=== PATIENT | male | born 1985 | race Caucasian/White ===

== ENCOUNTER 2019-07-04 23:24 | Emergency (ER) | payer OTHER, BC ==
[~2019-07-04] VITALS: Ht 172.7 cm; Wt 70.3 kg
--- NOTE | 2019-07-05 00:05 | NUR ---
PT BIBF. C/O "LAST DRINK TUESDAY. DRANK X5 YEARS HEAVY." +DIZZY. +SHAKY. PALCED ON MONTOR AND PULSE OX. VSS.
[2019-07-05] MEDS ORDERED: LORAZEPAM INJ 2 MG/ML VIAL ONE ×2 (00:09→00:39)
[2019-07-05] MEDS ORDERED: LORAZEPAM INJ 2 MG/ML VIAL IM ONE ×2 (00:30→01:00)
--- NOTE | 2019-07-05 01:03 | NUR ---
Patient discharged to home in stable condition. Written and verbal after care instructions given. Patient verbalizes understanding of instruction and RX. PT was told about AA programs. Pt ambulated with steady gait.
[2019-07-05 01:04] VITALS: BP 122/78
== END 2019-07-05 01:05 | disposition home or self-care (01) ==
LOC: ER 23:24
DX: F10.239 Alcohol dependence with withdrawal, unspecified (principal); Y90.9 Presence of alcohol in blood, level not specified
CPT/HCPCS: 96372 ×2; 99283; J2060 ×2

== ENCOUNTER 2019-07-05 14:09 | Emergency (ER) | payer OTHER ==
[~2019-07-05] VITALS: Ht 172.7 cm; Wt 70.3 kg
--- NOTE | 2019-07-05 14:17 | NUR ---
PT AAOX4. AMBULATORY. BIBRA83 FOUND ALTERED AT A [employer]. SEEN IN ED LAST NIGHT. PT STATES HE LEFT THE ED LAST NIGHT, WAS INVITED TO A [employer] AND WOKE UP IN FRONT OF A MANSION WITHOUT HIS BELONINGS. PT STATES "I WANT TO FIND OUT WHAT HAPPENED." PLACED ON MONITOR AND PULSE OX. NO ACUTE DISTRESS NOTED. VSS.
[2019-07-05] MEDS ORDERED: IV NS 0.9% 1,000 ML BAG IV ONE ×2 (14:30→16:30)
[2019-07-05 14:38] LABS: BASOPHILS # (AUTO) 0.2 /CMM (0.0-0.2); HEMATOCRIT 42 % (39-51); HEMOGLOBIN 13.8 g/dL (13.5-17.5); LYMPHOCYTES # (AUTO) 0.8 /CMM (0.8-4.8); LYMPHOCYTES % (AUTO) 10.7 % (20.0-44.0); MEAN CORPUSCULAR HGB CONC 33 g/dl (31.0-36.0); MEAN CORPUSCULAR VOLUME 94 fL (80-96); MONOCYTES # (AUTO) 1.1 /CMM (0.1-1.30); MONOCYTES % (AUTO) 13.8 % (2.0-12.0); NEUTROPHILS # (AUTO) 5.5 /CMM (1.8-8.9); NEUTROPHILS % (AUTO) 71.5 % (43.0-81.0); PLATELET COUNT (AUTO) 204 /CMM (150-450); RED BLOOD CELL COUNT(AUTO) 4.39 MIL/uL (4.5-6.0); WHITE BLOOD COUNT (AUTO) 7.7 K/uL (4.3-11.0)
--- NOTE | 2019-07-05 14:38 | NUR ---
URINE COLLECTED AND SENT TO LAB
--- NOTE | 2019-07-05 14:38 | NUR ---
LABS COLLECTED AND SENT TO LAB
--- NOTE | 2019-07-05 14:40 | NUR ---
SPOKE TO [facility] REGARDING THE PATIENT BEING HERE LAST NIGHT. THE PT STATED HE WAS GOING TO WORK IN THE MORNING. PT WAS DISCHARGED AND LEFT WITH HIS MOTHER AT 0103AM.
--- NOTE | 2019-07-05 14:43 | NUR ---
[employer] AT BEDSIDE.
[2019-07-05 14:46] LABS: CALCIUM, SERUM 9.5 mg/dL (8.5-10.1); POTASSIUM 3.3 mmol/L (3.5-5.1)
[2019-07-05 14:53] LABS: ALBUMIN 4.2 g/dL (3.4-5.0); BILIRUBIN,DIRECT 0.5 mg/dL (0.0-0.2); BILIRUBIN,TOTAL 2.8 mg/dL (0.2-1.0); TOTAL PROTEIN, SERUM 7.6 g/dL (6.4-8.2)
--- NOTE | 2019-07-05 15:21 | NUR ---
PT RESTING COMFORTABLY. SPEAKING ON THE PHONE. BLANKETS PROVIDED. VSS.
[2019-07-05] MEDS ORDERED: FOLIC ACID 1 MG TABLET PO ONE (16:30)
[2019-07-05] MEDS ORDERED: THIAMINE HCL 100 MG TABLET PO ONE (16:30)
[2019-07-05] MEDS ORDERED: FOLIC ACID 1 MG TABLET ONE (16:37)
[2019-07-05] MEDS ORDERED: THIAMINE HCL 100 MG TABLET ONE (16:37)
[2019-07-05] MEDS ORDERED: POTASSIUM CHLORIDE 20 MEQ TAB.PRT.SR PO ONE ×2 (17:30→17:31)
--- NOTE | 2019-07-05 18:24 | NUR ---
Patient discharged to home in stable condition. Written and verbal after care instructions given. Patient verbalizes understanding of instruction. IV removed. Catheter intact and site benign. Pressure and 4x4 applied to site. No bleeding noted. Patient picked up by his mother.
[2019-07-05 18:25] VITALS: BP 124/78
== END 2019-07-05 18:25 | disposition home or self-care (01) ==
LOC: ER 14:14
DX: R40.4 Transient alteration of awareness (principal); E86.0 Dehydration; F10.239 Alcohol dependence with withdrawal, unspecified; K70.9 Alcoholic liver disease, unspecified; E87.1 Hypo-osmolality and hyponatremia; E87.6 Hypokalemia; Y90.0 Blood alcohol level of less than 20 mg/100 ml
CPT/HCPCS: 36415; 71045; 80048; 80076; 80305; 80307; 82962; 85025; 93005; 94640; 96360; 96361; 99284; J7030 ×2; G0480